=== PATIENT | male | born 1950 | race Caucasian/White ===

== ENCOUNTER 2020-03-20 15:39 | Emergency (ER) | payer MEDICARE ==
[~2020-03-20] VITALS: Wt 86.2 kg
== END 2020-03-20 17:09 | disposition short-term general hospital (02) ==
LOC: ED 15:39
DX: R57.8 Other shock (principal); T14.90XA Injury, unspecified, initial encounter; X58.XXXA Exposure to other specified factors, initial encounter; Y93.89 Activity, other specified; Y92.89 Other specified places as the place of occurrence of the external cause; Y99.8 Other external cause status